=== PATIENT | male | born 1970 ===

== ENCOUNTER 2020-07-08 11:03 | Outpatient (CLI) | payer BC, SELFPAY | END 2020-07-08 11:04 | disposition home or self-care (01) | LOC: ANHBWCAUD 11:06 | DX: H91.93 Unspecified hearing loss, bilateral (principal) | CPT/HCPCS: 92557; 92567 ==

== ENCOUNTER 2020-09-02 13:00 | Outpatient (RCR) | payer BC, SELFPAY | END 2020-11-12 23:59 | disposition home or self-care (01) | LOC: ANHBWCAUD 13:00 | DX: Z46.1 Encounter for fitting and adjustment of hearing aid (principal) | CPT/HCPCS: 99199; V5160; V5261 ==